=== PATIENT | male | born 1955 | race African-American/Black ===

== ENCOUNTER 2017-02-28 15:25 | Emergency (ER) | payer SELFPAY ==
[~2017-02-28] VITALS: Ht 152.4 cm; Wt 61.2 kg
[~2017-02-28 15:25] MED LIST: AML5T PO; CARI-277; HYDR-1421; LISI-646 PO; OXYCONTIN
[2017-02-28] MEDS ORDERED: cloNIDine HCL 0.1 MG TAB PO ONE (16:15)
[2017-02-28 18:36] VITALS: BP 156/95
== END 2017-02-28 19:10 | disposition home or self-care (01) ==
LOC: ER 15:33
DX: R51 Headache (principal); M25.511 Pain in right shoulder; R07.89 Other chest pain; I10 Essential (primary) hypertension; F17.210 Nicotine dependence, cigarettes, uncomplicated; Z88.1 Allergy status to other antibiotic agents; V49.49XA Driver injured in collision with other motor vehicles in traffic accident, initial encounter; Y93.89 Activity, other specified; Y99.8 Other external cause status; Y92.410 Unspecified street and highway as the place of occurrence of the external cause
CPT/HCPCS: 70450; 71020; 72040; 73030; 73090